=== PATIENT | male | born 1955 | race Caucasian/White ===

== ENCOUNTER → 2017-08-01 | Outpatient (CLI) | payer BC ==
[~2017-08-01] MED LIST: CYANOCOBALAM1000 MCG PO; VITAMIN D31000 UNIT PO; VITAMIN E400 UNIT PO
== END | disposition home or self-care (01) ==
LOC: CDC 11:50
DX: R00.1 Bradycardia, unspecified (principal); I45.4 Nonspecific intraventricular block
CPT/HCPCS: 93000

== ENCOUNTER 2017-08-09 08:00 | Day surgery (SDC) | payer BC ==
[~2017-08-09] VITALS: Ht 185.4 cm; Wt 83.1 kg
[2017-08-09 08:38] VITALS: BP 155/76
[2017-08-09 09:42] LABS: METH RESISTANT S AUREUS PCR NEGATIVE (NEGATIVE)
[2017-08-09 09:43] LABS: PROBE CHECK PASS; SPECIMEN PROCESSING CONTROL PASS
[2017-08-09] MEDS ORDERED: ENDOCET 5-3251 EACH PO (14:18)
[2017-08-09 14:50] VITALS: BP 130/74
[2017-08-09 16:22] VITALS: BP 130/74
[2017-08-09 19:09] VITALS: BP 152/79
[2017-08-09 22:58] VITALS: BP 106/64
[2017-08-10 04:10] VITALS: BP 111/60
[2017-08-10 07:40] LABS: HEMATOCRIT 40.9 % (38.0-50.0); MCH 33.6 PG (29.0-34.0); MCHC 34.7 G/DL (30.0-36.0); MCV 96.9 FL (86-99); PLATELET COUNT 182 K/uL (156-360); RBC DIS.WIDTH-CV 11.9 % (11.8-14.6); RBC DIS.WIDTH-SD 42.7 % (39-53); RED BLOOD COUNT 4.22 M/uL (4.00-5.50); WHITE BLOOD COUNT 8.3 K/uL (4.1-10.2)
[2017-08-10 07:41] VITALS: BP 126/66
[2017-08-10 11:41] VITALS: BP 110/57
== END 2017-08-10 12:52 | disposition home or self-care (01) ==
LOC: SDC 08:00 → RAD 10:00 → SDC 10:00 → 2SOUTH 14:15 → ENRESERV 14:16 → 2EAST 14:50
PROVIDERS: Surgery
PROC: 3E0 Administration, Physiological Systems and Anatomical Regions, Introduction (ICD-10-PCS; principal; 2017-08-09)
PROC: 0HBT0ZZ Excision of Right Breast, Open Approach (ICD-10-PCS; principal; 2017-08-09)
PROC: 07B50ZX Excision of Right Axillary Lymphatic, Open Approach, Diagnostic (ICD-10-PCS; principal; 2017-08-09)
DX: C50.121 Malignant neoplasm of central portion of right male breast (principal); Z17.0 Estrogen receptor positive status [ER+]; Z86.14 Personal history of Methicillin resistant Staphylococcus aureus infection; E87.6 Hypokalemia; I10 Essential (primary) hypertension; Z87.19 Personal history of other diseases of the digestive system; Z80.3 Family history of malignant neoplasm of breast; Z80.0 Family history of malignant neoplasm of digestive organs; Z80.51 Family history of malignant neoplasm of kidney; Z82.49 Family history of ischemic heart disease and other diseases of the circulatory system; Z84.1 Family history of disorders of kidney and ureter; Z91.013 Allergy to seafood
CPT/HCPCS: 78195; 78999; 85027; 87641; 88305; 88309; 88331; A9541; G0378; J0131; J0330; J0690; J1100; J2250; J2405; J3010; J3480; J7120; S0020